=== PATIENT | female | born 1995 | race Caucasian/White ===

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

== ENCOUNTER 2017-05-04 14:59 | Emergency (ER) | payer MEDICAID ==
[~2017-05-04] VITALS: Ht 172.7 cm; Wt 113.9 kg
[~2017-05-04 14:59] MED LIST changes: +CLIN300C2 PO; +IBUP-1842 PO; -MOTRIN200 MG; +SACC250C4 PO; -VOLTAREN75 M1 PO
[2017-05-04 15:07] VITALS: BP 139/97
[2017-05-04 16:29] LABS: APPEARANCE,URINE CLEAR (CLEAR); BILIRUBIN,URINE NEGATIVE (NEGATIVE); COLOR,URINE YELLOW (YELLOW); LEUKOCYTE ESTERASE ,URINE NEGATIVE (NEGATIVE); NITRITE, URINE NEGATIVE (NEGATIVE); UGLUCOSE NEGATIVE (NEGATIVE)
[2017-05-04 16:30] LABS: BASOPHILS # (AUTO) 0.2 K/uL (0.00-0.22); HEMATOCRIT 40.6 % (36-48); HEMOGLOBIN 13.1 g/dL (12.0-16.0); LYMPHOCYTES # (AUTO) 1.7 K/uL (2.5-16.5); MEAN CORPUSCULAR HEMOGLOBIN 27 pg (27-31); MEAN CORPUSCULAR HGB CONC 32 g/dL (33-37); MEAN CORPUSCULAR VOLUME 82 fL (80-94); MONOCYTES # (AUTO) 0.5 K/uL (0.8-1.0); NEUTROPHILS # (AUTO) 6.4 K/uL (1.8-7.7); PLATELET COUNT (AUTO) 305 K/uL (140-450); RED BLOOD CELL COUNT(AUTO) 4.93 MIL/uL (4.20-5.40); RED CELL DISTRIBUTION WIDTH 13.3 % (11.6-13.7); WHITE BLOOD COUNT (AUTO) 8.8 K/uL (4.5-11.0)
[2017-05-04 16:36] LABS: ANION GAP 10.5 (8-16); CARBON DIOXIDE 28.5 mmol/L (21-32); CREATININE 0.8 mg/dL (0.6-1.3)
[2017-05-04 16:42] LABS: BILIRUBIN,DIRECT 0.2 mg/dL (0.0-0.3); TOTAL BILIRUBIN 0.8 mg/dL (0.0-1.0)
[2017-05-04 16:53] LABS: BLOOD, URINE NEGATIVE (NEGATIVE)
[2017-05-04] MEDS ORDERED: DICYCLOMINE HCL LIQUID 10 MG/5 ML UDC PO ONE (19:55)
[2017-05-04] MEDS ORDERED: ALUMINUM HYD/MAG/SIMETHICONE 30 ML UDC PO ONE (19:55)
[2017-05-04] MEDS ORDERED: LIDOCAINE VISCOUS 2% 20 ML UDC PO ONE (19:55)
[2017-05-04 20:40] VITALS: BP 133/89
== END 2017-05-04 20:40 | disposition home or self-care (01) ==
LOC: MED 14:59
DX: K29.70 Gastritis, unspecified, without bleeding (principal); E66.9 Obesity, unspecified; Z79.899 Other long term (current) drug therapy
CPT/HCPCS: 36415; 80053; 81003; 81025; 82248; 83690; 85025; 99284

== ENCOUNTER 2017-11-22 21:37 | Emergency (ER) | payer MEDICAID ==
[~2017-11-22] VITALS: Ht 170.2 cm; Wt 113.4 kg
[~2017-11-22 21:37] MED LIST changes: +FLOR250 PO; -SACC250C4 PO
[2017-11-22 21:43] VITALS: BP 147/91
--- NOTE | 2017-11-22 21:46 | NUR ---
PT. AMBULATED TO [facility]
--- NOTE | 2017-11-22 22:10 | NUR ---
Royce to chair Rios
[2017-11-22] MEDS ORDERED: KETOROLAC 30 MG/ML VIAL IM ONE (22:25)
[2017-11-22 23:20] VITALS: BP 132/88
--- NOTE | 2017-11-22 23:20 | NUR ---
Patient discharged with v/s stable. Written and verbal after care instructions given and explained. Patient alert, oriented and verbalized understanding of instructions. Ambulatory with steady gait. All questions addressed prior to discharge. ID band removed. Patient advised to follow up with PMD. Rx of IBU 400,ACETAMINOPHEN 500 given. Patient educated on indication of medication including possible reaction and side effects. Opportunity to ask questions provided and answered.
== END 2017-11-22 23:38 | disposition home or self-care (01) ==
LOC: MED 21:37
DX: S63.501A Unspecified sprain of right wrist, initial encounter (principal); E11.9 Type 2 diabetes mellitus without complications; Z79.899 Other long term (current) drug therapy; W21.00XA Struck by hit or thrown ball, unspecified type, initial encounter; Y93.89 Activity, other specified; Y92.89 Other specified places as the place of occurrence of the external cause; Y99.8 Other external cause status
CPT/HCPCS: 29125; 73110; 96372; 99284; J1885

== ENCOUNTER 2018-02-11 22:26 | Emergency (ER) | payer MEDICAID ==
[~2018-02-11] VITALS: Ht 170.2 cm; Wt 111.1 kg
[2018-02-11 22:35] VITALS: BP 156/97
--- NOTE | 2018-02-11 22:44 | NUR ---
PT AMBULATED TO ER BED 1, REPORT GIVEN TO THIAGO TAYLOR .
--- NOTE | 2018-02-11 22:45 | NUR ---
PT C/O SOB RANDOMLY THROUGHOUT THE DAY AND TINGLING IN LEGS X 1 WEEK, C/O TIGHTNESS IN NECK FROM STRESS X 1 WEEK. PT DENIES N/V/D; SKIN IS INTACT, PINK/WARM/DRY; AAOX4, PERRL, WITH EVEN AND STEADY GAIT; LUNGS CLEAR BL, BREATHING UNLABORED; HR EVEN AND REGULAR, BL PERIPHERAL PULSES PRESENT; BS ACTIVE X4, NO TENDERNESS TO PALPATION, NO HEPATOSPLENOMEGALLY PALPATED, RESONANT TO PERCUSSION; PT DENIES ANY FEVER, CP, OR COUGH AT THIS TIME ADMITS TO SOB INTERMITTENTLY; PT STATES 4/10 PAIN AT THIS TIME; VSS; PATIENT POSITIONED FOR COMFORT; HOB ELEVATED; BEDRAILS UP X2; BED DOWN.
--- NOTE | 2018-02-11 23:34 | NUR ---
REPORT GIVEN TO MARÍA DAS
[2018-02-11 23:44] LABS: BASOPHILS % (AUTO) 0.2 % (0.0-2.0); EOSINOPHILS # (AUTO) 0.1 K/uL (0-0.4); EOSINOPHILS % (AUTO) 0.9 % (0.0-4.0); HEMATOCRIT 37.1 % (36-48); LYMPHOCYTES # (AUTO) 2.5 K/uL (2.5-16.5); LYMPHOCYTES % (AUTO) 19.9 % (20.5-51.1); MEAN CORPUSCULAR HEMOGLOBIN 26 pg (27-31); MEAN CORPUSCULAR HGB CONC 32 g/dL (33-37); MEAN CORPUSCULAR VOLUME 81.4 fL (80-94); MONOCYTES # (AUTO) 0.7 K/uL (0.8-1.0); PLATELET COUNT (AUTO) 291 K/uL (140-450); RED BLOOD CELL COUNT(AUTO) 4.55 MIL/uL (4.20-5.40); RED CELL DISTRIBUTION WIDTH 14.7 % (11.6-13.7); WHITE BLOOD COUNT (AUTO) 12.4 K/uL (4.5-11.0)
[2018-02-11 23:53] LABS: ANION GAP 12.9 (8-16); CARBON DIOXIDE 26.7 mmol/L (21-32); CREATININE 0.7 mg/dL (0.6-1.3); POTASSIUM 3.6 mmol/L (3.5-5.1)
[2018-02-12 00:07] LABS: ALBUMIN 3.6 g/dL (3.4-5.0); THYROID STIMULATING HORMONE 1.9 uIU/mL (0.34-3.74); TOTAL BILIRUBIN 0.4 mg/dL (0.0-1.0)
--- NOTE | 2018-02-12 00:23 | NUR ---
Patient discharged with v/s stable. Written and verbal after care instructions given and explained. Patient verbalized understanding. Ambulatory with steady gait. All questions addressed prior to discharge. Advised to follow up with PMD.
[2018-02-12 00:24] VITALS: BP 117/58
== END 2018-02-12 00:23 | disposition home or self-care (01) ==
LOC: MED 22:26
DX: F41.9 Anxiety disorder, unspecified (principal); E11.9 Type 2 diabetes mellitus without complications
CPT/HCPCS: 36415; 80053; 81002; 81025; 84443; 85025; 99284

== ENCOUNTER 2019-01-09 22:26 | Emergency (ER) | payer MEDICAID ==
[~2019-01-09] VITALS: Ht 170.2 cm; Wt 113.4 kg
[2019-01-09 22:40] VITALS: BP 123/90
--- NOTE | 2019-01-09 22:42 | NUR ---
TO LOBBY AWAITING BED, VSS.
[2019-01-09 23:33] LABS: BASOPHILS % (AUTO) 0.1 % (0.0-2.0); EOSINOPHILS # (AUTO) 0.1 K/uL (0-0.4); HEMATOCRIT 39.3 % (36-48); HEMOGLOBIN 12.8 g/dL (12.0-16.0); LYMPHOCYTES # (AUTO) 1.7 K/uL (2.5-16.5); LYMPHOCYTES % (AUTO) 18.6 % (20.5-51.1); MEAN CORPUSCULAR HEMOGLOBIN 27 pg (27-31); MEAN CORPUSCULAR HGB CONC 33 g/dL (33-37); MEAN CORPUSCULAR VOLUME 83.2 fL (80-94); MONOCYTES # (AUTO) 0.5 K/uL (0.8-1.0); MONOCYTES % (AUTO) 5.9 % (1.7-9.3); NEUTROPHILS # (AUTO) 6.8 K/uL (1.8-7.7); NEUTROPHILS % (AUTO) 74.4 % (42.2-75.2); PLATELET COUNT (AUTO) 250 K/uL (140-450); RED BLOOD CELL COUNT(AUTO) 4.72 MIL/uL (4.20-5.40); RED CELL DISTRIBUTION WIDTH 13.8 % (11.6-13.7); WHITE BLOOD COUNT (AUTO) 9.1 K/uL (4.8-10.8)
[2019-01-09 23:44] LABS: ANION GAP 11.3 (8-16); CARBON DIOXIDE 26.5 mmol/L (21-32); CREATININE 0.9 mg/dL (0.6-1.3); POTASSIUM 3.8 mmol/L (3.5-5.1)
[2019-01-09 23:51] LABS: ALBUMIN 3.8 g/dL (3.4-5.0); TOTAL BILIRUBIN 0.6 mg/dL (0.0-1.0)
--- NOTE | 2019-01-10 00:52 | NUR ---
PT WAS RE-EVALUATED, VSS
--- NOTE | 2019-01-10 01:00 | NUR ---
PT BIB SELF C/O ABD PAIN X4 DAYS. PT STATES ABD PAIN STARTED ON SATURDAY, PAIN IS INTERMITTENT, 0/10 PAIN AT THIS TIME; UNKNOWN AGGRAVATING OR ALLVIATING FACTORS; PAIN MEDICINE AT HOME W/O RELIEF. DENIES N/V/D AT THIS TIME. PT ACTING APPROPRIATLY. ABD NON-TENDER AT THIS TIME. PMH: DENIES
--- NOTE | 2019-01-10 01:20 | NUR ---
US AT BEDSIDE.
--- NOTE | 2019-01-10 02:51 | NUR ---
DR. SOTO AT BEDSIDE FOR EVALUATION.
[2019-01-10] MEDS ORDERED: DICYCLOMINE HCL LIQUID 20 MG, ALUMINUM HYD/MAG/SIMETHICONE 30 ML, LIDOCAINE VISCOUS 2% ... PO ONE ×3 (02:55)
--- NOTE | 2019-01-10 03:32 | NUR ---
Patient discharged with v/s stable. Patient acting appropriatly, states she feels better after recieving medication and is ready to go home; states 0/10 pain at this time. Written and verbal after care instructions given and explained. Patient alert, oriented and verbalized understanding of instructions. Ambulatory with steady gait. All questions addressed prior to discharge. ID band removed. Patient advised to follow up with PMD. Rx of Motrin, and Prilosec given. Patient educated on indication of medication including possible reaction and side effects. Opportunity to ask questions provided and answered.
[2019-01-10 04:17] VITALS: BP 128/73
== END 2019-01-10 03:32 | disposition home or self-care (01) ==
LOC: MED 22:26
DX: R10.13 Epigastric pain (principal); Z90.49 Acquired absence of other specified parts of digestive tract; Z79.899 Other long term (current) drug therapy
CPT/HCPCS: 36415; 76705; 80053; 81002; 81025; 83690; 85025; 99284; Q0092

== ENCOUNTER 2019-06-15 21:39 | Emergency (ER) | payer MEDICAID ==
[~2019-06-15] VITALS: Ht 170.2 cm; Wt 117.9 kg
[2019-06-15 21:50] VITALS: BP 144/76
--- NOTE | 2019-06-15 21:55 | NUR ---
23 YO F BIB MOM PRESENTS TO ED WITH DEEP ABSCESS NOTED ABOVE COCCYX WITH PURULENT, SANGUINEOUS DISCHARGE X 1 DAY. PT C/O 7/10 SHARP PAIN. DENIES FEVER, CHILLS, NVD. -- PT CALM, COOPERATIVE. ANSWERS QUESTTIONS WITHOUT DIFFICULTY. -- SKIN PINK, WARM, DRY. BREATHING EVEN UNLABORED. PMH-- DENIES RX-- SELF MEDICATED WITH AUGMENTIN X 1 TAB
--- NOTE | 2019-06-15 21:57 | NUR ---
Pt ambulated to bed 3.
[2019-06-15] MEDS ORDERED: ceFAZolin 1,000 MG VIAL IM ONE (22:10)
[2019-06-15] MEDS ORDERED: WATER STERILE 10 ML MC ONE (22:30)
--- NOTE | 2019-06-15 22:35 | NUR ---
DURING RECONSITITUTION OF ANCEF MEDICATION WITH 2.5 ML STERILE WATER, ONE VIAL APPEARED CLEAR, LIGHT YELLOW AND THE OTHER APPEARED CLOUDY WHITE WITH SOLID WHITE PRECIPITATE. VERIFIED WITH [facility] THAT MEDICATION SHOULD APPEAR CLEAR WITH LIGHT YELLOW TINGE. VIAL X 2 RECONSTITUED WITH CLOUDY WHITE PRECIPITATE; MEDICATION DISPOSED. 4 VIALS ANCEF 1 GRAM TAKEN FROM [facility]; 2 WASTED.
[2019-06-15 22:50] VITALS: BP 144/76
--- NOTE | 2019-06-15 22:55 | NUR ---
Patient discharged with v/s stable. Written and verbal after care instructions given and explained. Patient alert, oriented and verbalized understanding of instructions. Ambulatory with steady gait. All questions addressed prior to discharge. ID band removed. Patient advised to follow up with PMD. Rx of Keflex and Naprosyn given. Patient educated on indication of medication including possible reaction and side effects. Opportunity to ask questions provided and answered. Pt discharged by Dr. Carranza.
== END 2019-06-15 22:55 | disposition home or self-care (01) ==
LOC: MED 21:39
DX: L02.31 Cutaneous abscess of buttock (principal); Z79.899 Other long term (current) drug therapy
CPT/HCPCS: 96372; 99283; J0690

== ENCOUNTER 2019-07-28 21:18 | Emergency (ER) | payer MEDICAID ==
[~2019-07-28] VITALS: Ht 170.2 cm; Wt 117.9 kg
[2019-07-28 21:20] VITALS: BP 141/85
--- NOTE | 2019-07-28 21:22 | NUR ---
TO LOBBY A/W BED AMBULATORY
--- NOTE | 2019-07-28 21:46 | NUR ---
PT AMBULATED TO BED 07
--- NOTE | 2019-07-28 21:47 | NUR ---
23 Y/O FEMALE PRESENTS TO ED, C/O RIGHT GROIN PAIN RADIATES TO RIGHT UPPER LEG. PT STATES PAIN IS 7/10 WHEN MOVING OBJECTS AT WORK; 2/10 WITHOUT MOVEMENT. PT DENIES ANY TINGLING SENSATION ON EXTREMITIES. PT ABLE TO AMBULATE WITH SLOW STEADY GAIT. TOOK MOTRIN PRIOR TO ARRIVAL TO ED WITH SOME RELIEF. PT AT STABLE CONDITION. DENIES N/V/D. ERMD AWARE. WILL CONTINUE TO MONITOR.
[2019-07-28 22:10] VITALS: BP 141/85
--- NOTE | 2019-07-28 22:10 | NUR ---
PT DISCHARGED WITH PAPERWORK. RX MOTRIN. EDUCATED PT REGARDING MEDICATIONS AND S/E. EDUCATED PT REGARDING D/C DIAGNOSIS AND INSTRUCTIONS. PT VERBALIZED UNDERSTANDING OF TEACHING. TOLD PT TO FOLLOW UP WITH PCP AND WHEN TO RETURN TO ED. PT AT STABLE CONDITION. ABLE TO AMBULATE WITH SLOW STEADY GAIT. ALL QUESTIONS ANSWERED.
== END 2019-07-28 22:10 | disposition home or self-care (01) ==
LOC: MED 21:18
DX: S39.011A Strain of muscle, fascia and tendon of abdomen, initial encounter (principal); S76.911A Strain of unspecified muscles, fascia and tendons at thigh level, right thigh, initial encounter; Z79.899 Other long term (current) drug therapy; X58.XXXA Exposure to other specified factors, initial encounter; Y93.89 Activity, other specified; Y92.89 Other specified places as the place of occurrence of the external cause; Y99.8 Other external cause status
CPT/HCPCS: 81002; 81025; 99283

== ENCOUNTER 2019-08-31 13:30 | Emergency (ER) | payer MEDICAID ==
[~2019-08-31] VITALS: Ht 170.2 cm; Wt 120.3 kg
[2019-08-31 15:01] VITALS: BP 132/79
--- NOTE | 2019-08-31 15:15 | NUR ---
BIB MOTHER C/O MID CHEST RADIATING TO RT FLANK S/P FELL ON A GRASS WHILE PLAYING SOCCER. DENIES OTHER INJURY, ALOC OR NV
[2019-08-31 15:58] VITALS: BP 132/79
--- NOTE | 2019-08-31 15:58 | NUR ---
Patient discharged with v/s stable. Written and verbal after care instructions given and explained. Patient verbalized understanding. Ambulatory with by parent. All questions addressed prior to discharge. Advised to follow up with PMD.
== END 2019-08-31 15:58 | disposition home or self-care (01) ==
LOC: MED 13:30
DX: S20.211A Contusion of right front wall of thorax, initial encounter (principal); L72.8 Other follicular cysts of the skin and subcutaneous tissue; E11.9 Type 2 diabetes mellitus without complications; Z79.899 Other long term (current) drug therapy; W18.30XA Fall on same level, unspecified, initial encounter; Y93.89 Activity, other specified; Y92.89 Other specified places as the place of occurrence of the external cause; Y99.8 Other external cause status
CPT/HCPCS: 71046; 93005; 99283

== ENCOUNTER 2019-09-26 10:35 | Emergency (ER) | payer MEDICAID ==
[~2019-09-26] VITALS: Ht 170.2 cm; Wt 117.9 kg
[2019-09-26 10:59] VITALS: BP 140/83
--- NOTE | 2019-09-26 11:03 | NUR ---
PATIENT WHEELCHAIR ASSISTED TO BED 3
--- NOTE | 2019-09-26 11:14 | NUR ---
24YO F C/O L ANKLE PAIN AND SWELLING X 30MINS. PT WAS PLAYING SOCCER WHEN SHE TWISTED HER L ANKLE. PAIN 9/10, THROBBING. ICE APPLIED ON SITE. CR <3SECS. DENIES NUMBNESS AND TINGLING SENSATION. VSS. PATIENT ON WHEELCHAIR. ER MD MADE AWARE OF PT STATUS. NKA DENIES [facility] MEDS: MOTRIN
[2019-09-26] MEDS ORDERED: KETOROLAC 60 MG/2 ML VIAL IM ONE (12:20)
[2019-09-26 12:38] VITALS: BP 140/83
--- NOTE | 2019-09-26 12:38 | NUR ---
Patient discharged with v/s stable. Written and verbal after care instructions given and explained. Patient alert, oriented and verbalized understanding of instructions. Ambulatory with crutches. All questions addressed prior to discharge. ID band removed. Patient advised to follow up with PMD. Rx of MOTRIN given. Patient educated on indication of medication including possible reaction and side effects. Opportunity to ask questions provided and answered.
== END 2019-09-26 12:38 | disposition home or self-care (01) ==
LOC: MED 10:35
DX: S93.402A Sprain of unspecified ligament of left ankle, initial encounter (principal); E11.9 Type 2 diabetes mellitus without complications; Z79.899 Other long term (current) drug therapy; W19.XXXA Unspecified fall, initial encounter; Y93.66 Activity, soccer; Y92.89 Other specified places as the place of occurrence of the external cause; Y99.8 Other external cause status
CPT/HCPCS: 73610; 96372; 99283; J1885

== ENCOUNTER 2019-12-04 08:41 | Emergency (ER) | payer MEDICAID ==
[~2019-12-04] VITALS: Ht 170.2 cm; Wt 119.3 kg
[2019-12-04 08:43] VITALS: BP 120/73
--- NOTE | 2019-12-04 08:53 | NUR ---
24 Y/O FEMALE C/O SUDDEN ONSET ABD PAIN THAT WOKE PT FROM HER SLEEP. DENIES N/V/D. HAS TENDERNESS TO EPIGASTRIC REGION. ABD SOFT AND ROUND. LAST BM WAS LAST NIGHT AND NORMAL. 9/10 SHARP INTERMITTENT PAIN. RR EVEN AND UNLABORED, HOB ELEVATED. VSS MEDHX: DENIES ALLERGIES: NKA
--- NOTE | 2019-12-04 08:54 | NUR ---
DR GARCIA AT BEDSIDE EXAMINING PT
[2019-12-04] MEDS ORDERED: DICYCLOMINE HCL LIQUID 10 MG/5 ML UDC PO ONE (08:55)
[2019-12-04] MEDS ORDERED: ALUMINUM HYD/MAG/SIMETHICONE 30 ML UDC PO ONE (08:55)
[2019-12-04] MEDS ORDERED: LIDOCAINE VISCOUS 2% 20 ML UDC PO ONE (08:55)
--- NOTE | 2019-12-04 09:36 | NUR ---
STATES DECREASE IN EPIGASTRIC PAIN, 5/10 AT THIS TIME
--- NOTE | 2019-12-04 09:38 | NUR ---
DR GARCIA RE-EVALUATING PT
[2019-12-04 10:11] VITALS: BP 120/73
--- NOTE | 2019-12-04 10:11 | NUR ---
Patient discharged with v/s stable. Written and verbal after care instructions given and explained. Patient alert, oriented and verbalized understanding of instructions. Ambulatory with steady gait. All questions addressed prior to discharge. ID band removed. Patient advised to follow up with PMD. Rx of Prilosec, Tramadol, and Maalox Suspension given. Patient educated on indication of medication including possible reaction and side effects. Opportunity to ask questions provided and answered.
== END 2019-12-04 10:11 | disposition home or self-care (01) ==
LOC: MED 08:41
DX: K29.70 Gastritis, unspecified, without bleeding (principal); E11.9 Type 2 diabetes mellitus without complications; Z79.899 Other long term (current) drug therapy
CPT/HCPCS: 81002; 81025; 99284

== ENCOUNTER 2020-02-24 04:25 | Emergency (ER) | payer MEDICAID ==
[~2020-02-24] VITALS: Ht 170.2 cm; Wt 117.9 kg
--- NOTE | 2020-02-24 04:25 | NUR ---
PT PLACED IN TENT TO A/W MEDICAL EVALUTION.
[2020-02-24 04:27] VITALS: BP 127/77
--- NOTE | 2020-02-24 04:34 | NUR ---
PT MOVED TO ER BED 4
--- NOTE | 2020-02-24 04:38 | NUR ---
Dr. Quintero examining patient.
--- NOTE | 2020-02-24 04:43 | NUR ---
24 Y/O FEMALE PRESENTS TO ER WITH C/O DRY, NON PRODUCTIVE COUGH X 1 WEEK. 4/10 MIDSTERNAL CHEST PAIN FROM COUGHING. BILATERAL LOBES CTA, SOME SOB WITH DEEP BREATHING. R/R EQUAL, AND UNLABORED. VSS. DENIES SMOKING, NAUSEA, VOMITING, DIARRHEA, AFEBRILE. DENIES BEING AROUND ANYONE SICK OR KNOW CONFIRMED COVID POSITIVE PATIENTS. SIDE RAIL X1, BED IN LOW POSITION, WILL CONTINUE TO MONITOR. PMH: ANXIETY NKDA
--- NOTE | 2020-02-24 04:53 | NUR ---
XRAY AT BEDSIDE
--- NOTE | 2020-02-24 05:10 | NUR ---
Patient discharged with v/s stable. Written and verbal after care instructions given and explained. Patient alert, oriented and verbalized understanding of instructions. Ambulatory with steady gait. All questions addressed prior to discharge. ID band removed. Patient advised to follow up with PMD. Rx of MEDROL DOSEPAK; VENTOLIN HFA given. Patient educated on indication of medication including possible reaction and side effects. Opportunity to ask questions provided and answered.
[2020-02-24 05:16] VITALS: BP 127/77
== END 2020-02-24 05:10 | disposition home or self-care (01) ==
LOC: MED 04:25
DX: J20.9 Acute bronchitis, unspecified (principal); F12.90 Cannabis use, unspecified, uncomplicated; E11.9 Type 2 diabetes mellitus without complications; Z79.899 Other long term (current) drug therapy
CPT/HCPCS: 71045; 99283; Q0092

== ENCOUNTER 2020-03-12 16:39 | Emergency (ER) | payer MEDICAID ==
[~2020-03-12] VITALS: Ht 170.2 cm; Wt 115.7 kg
[2020-03-12 16:46] VITALS: BP 124/73
--- NOTE | 2020-03-12 17:06 | NUR ---
Female Fly Tier (MYSELF) accompanied NICKY ZEE FOR PT EXAM
--- NOTE | 2020-03-12 17:17 | NUR ---
PT SEEN AND D/C BY NICKY ZEE. NO NURSING CARE PROVIDED.
--- NOTE | 2020-03-12 17:17 | NUR ---
Patient discharged with v/s stable. Written and verbal after care instructions given and explained. Patient alert, oriented and verbalized understanding of instructions. Ambulatory with steady gait. All questions addressed prior to discharge. ID band removed. Patient advised to follow up with PMD. Rx of DOXYCYCLINE AND IBUPROFEN given. Patient educated on indication of medication including possible reaction and side effects. Opportunity to ask questions provided and answered.
[2020-03-12 17:19] VITALS: BP 124/73
== END 2020-03-12 17:17 | disposition home or self-care (01) ==
LOC: MED 16:39
DX: L02.412 Cutaneous abscess of left axilla (principal); E11.9 Type 2 diabetes mellitus without complications; Z90.09 Acquired absence of other part of head and neck; Z79.899 Other long term (current) drug therapy
CPT/HCPCS: 99283

== ENCOUNTER 2020-03-27 12:52 | Emergency (ER) | payer MEDICAID ==
[~2020-03-27] VITALS: Ht 170.2 cm; Wt 117.9 kg
[2020-03-27 13:09] VITALS: BP 151/77
--- NOTE | 2020-03-27 13:25 | NUR ---
24 y/o female from home c/o lump and pain to lt armpit. Pt states she was seen at [facility] 2 wks ago when it was first noticed and prescribed Doxycycline. Finished prescription with no relief. States 8/10 aching pain, worse when pressure is applied to area. Skin warm, dry, intact. X1 side rail raised, bed locked and in low position. VSS medhx: denies
--- NOTE | 2020-03-27 13:47 | NUR ---
Lidocaine placed at bedside for use by Dr Quintero.
[2020-03-27] MEDS: LIDOCAINE/EPI 1% 1:100000 20 ML VIAL INJ STA (13:50)
[2020-03-27 15:11] VITALS: BP 133/75
== END 2020-03-27 15:11 | disposition home or self-care (01) ==
LOC: MED 12:52
DX: L72.3 Sebaceous cyst (principal); E11.9 Type 2 diabetes mellitus without complications; Z79.890 Hormone replacement therapy; Z79.899 Other long term (current) drug therapy
CPT/HCPCS: 99284; J2001

== ENCOUNTER 2020-04-12 22:50 | Emergency (ER) | payer MEDICAID ==
[~2020-04-12] VITALS: Ht 170.2 cm; Wt 117.5 kg
[2020-04-12 23:28] VITALS: BP 125/72
--- NOTE | 2020-04-13 | NUR ---
24 YO F BIB SELF FOR C/C OF 8/10 LEFT ARMPIT PAIN X3 WEEKS. PT HAS A SMALL NODULE UNDER ARM, FELT ON PALPATION. [facility]AS[facility] AND RECIEVED ABX THAT SHE COMPLETED. PT HAS ALSO BEEN SEEN BY PRIMARY CARE DOCTOR AND HAS A FOLLOW UP ULTRASOUND SCHEDULED IN THE NEAR FUTURE. PT DENIES TAKING ANY OTC PAIN MEDS FOR PAIN. BED LOCKED AND IN LOWEST POSITION. NKA NO MED HX NO RX
[2020-04-13] MEDS ORDERED: IBUPROFEN 800 MG TAB PO ONE (00:05)
[2020-04-13 00:20] VITALS: BP 125/72
== END 2020-04-13 00:15 | disposition home or self-care (01) ==
LOC: MED 22:50
DX: N63.32 Unspecified lump in axillary tail of the left breast (principal); E11.9 Type 2 diabetes mellitus without complications; Z79.899 Other long term (current) drug therapy
CPT/HCPCS: 99282; 99283

== ENCOUNTER 2020-04-27 00:47 | Emergency (ER) | payer MEDICAID ==
[~2020-04-27] VITALS: Ht 170.2 cm; Wt 117.9 kg
[2020-04-27 00:53] VITALS: BP 127/85
--- NOTE | 2020-04-27 00:55 | NUR ---
PT AMBULATED TO BED 11
--- NOTE | 2020-04-27 01:00 | NUR ---
24 YO FEMALE CO ABSCESS UNDER HER LEFT ARM. PT WAS SEEN HERE IN ER PREVIOUSLY. ABSCESS BROKE OPEN TODAY AND WAS BLEEDING. NO PMH, NO RX
--- NOTE | 2020-04-27 01:12 | NUR ---
ERMD AT BEDSIDE EVALUTING PT
[2020-04-27 01:49] VITALS: BP 127/85
--- NOTE | 2020-04-27 01:49 | NUR ---
Patient discharged with v/s stable. Written and verbal after care instructions given and explained. Patient verbalized understanding. Ambulatory with steady gait. ID Band Removed. All questions addressed prior to discharge. Advised to follow up with PMD.
== END 2020-04-27 01:49 | disposition home or self-care (01) ==
LOC: MED 00:47
DX: L73.2 Hidradenitis suppurativa (principal); L02.414 Cutaneous abscess of left upper limb; E11.9 Type 2 diabetes mellitus without complications; Z79.899 Other long term (current) drug therapy
CPT/HCPCS: 99283

== ENCOUNTER 2021-03-05 03:41 | Emergency (ER) | payer MEDICAID ==
[~2021-03-05] VITALS: Ht 170.2 cm; Wt 120.2 kg
[2021-03-05 03:52] VITALS: BP 138/89
--- NOTE | 2021-03-05 03:52 | NUR ---
TO BED AMBULATORY
[2021-03-05] MEDS ORDERED: ACETAMINOPHEN EXTRA STRENGTH 500 MG TAB PO ONE (04:05)
[2021-03-05] MEDS ORDERED: ONDANSETRON 4 MG ODT PO ONE (04:05)
--- NOTE | 2021-03-05 04:06 | NUR ---
25/F c/o headache and nausea. Pt drank a lot of tequila in a republic[employer]. Pt oriented and able to answer questions. denies PMH NKDA
--- NOTE | 2021-03-05 04:09 | NUR ---
Dr. Moreira at bedside examining patient
--- NOTE | 2021-03-05 05:10 | NUR ---
Patient discharged with v/s stable. Written and verbal after care instructions given and explained. Patient verbalized understanding. Ambulatory with by brother. All questions addressed prior to discharge. Advised to follow up with PMD.
[2021-03-05 05:11] VITALS: BP 138/89
== END 2021-03-05 05:10 | disposition home or self-care (01) ==
LOC: MED 03:41
DX: F10.19 Alcohol abuse with unspecified alcohol-induced disorder (principal); Y90.9 Presence of alcohol in blood, level not specified
CPT/HCPCS: 99283; Q0162

== ENCOUNTER 2021-03-12 02:50 | Emergency (ER) | payer MEDICAID ==
[~2021-03-12] VITALS: Ht 170.2 cm; Wt 122.5 kg
[2021-03-12 02:58] VITALS: BP 134/69
[2021-03-12] MEDS ORDERED: KETOROLAC 30 MG/ML VIAL IM ONE (03:10)
[2021-03-12] MEDS ORDERED: PROCHLORPERAZINE 10 MG/2 ML VIAL IM ONE (03:10)
[2021-03-12] MEDS ORDERED: diphenhydrAMINE 50 MG/ML VIAL IM ONE (03:10)
[2021-03-12 05:20] VITALS: BP 134/69
== END 2021-03-12 05:20 | disposition home or self-care (01) ==
LOC: MED 02:50
DX: G43.909 Migraine, unspecified, not intractable, without status migrainosus (principal); E11.9 Type 2 diabetes mellitus without complications; Z79.899 Other long term (current) drug therapy
CPT/HCPCS: 70450; 81025; 96372; 99284; J0780; J1200; J1885

== ENCOUNTER 2021-05-01 14:10 | Emergency (ER) | payer MEDICAID ==
[~2021-05-01] VITALS: Ht 170.2 cm; Wt 122.5 kg
[2021-05-01 14:39] VITALS: BP 148/85
--- NOTE | 2021-05-01 14:44 | NUR ---
PT SENT TO LOBBY
[2021-05-01] MEDS ORDERED: NAPR-1704 PO (15:30)
[2021-05-01 15:50] VITALS: BP 126/72
--- NOTE | 2021-05-01 15:51 | NUR ---
PT TREATED IN THE LOBBY. NO NURSING INTERVENTIONS NEEDED
== END 2021-05-01 15:51 | disposition home or self-care (01) ==
LOC: MED 14:10
DX: S30.0XXA Contusion of lower back and pelvis, initial encounter (principal); R03.0 Elevated blood-pressure reading, without diagnosis of hypertension; E11.9 Type 2 diabetes mellitus without complications; Z79.899 Other long term (current) drug therapy; W22.8XXA Striking against or struck by other objects, initial encounter; Y93.89 Activity, other specified; Y92.89 Other specified places as the place of occurrence of the external cause; Y99.8 Other external cause status
CPT/HCPCS: 99282

== ENCOUNTER 2021-05-05 19:33 | Emergency (ER) | payer MEDICAID ==
[~2021-05-05] VITALS: Ht 170.2 cm; Wt 124.7 kg
[~2021-05-05 19:33] MED LIST changes: +NAPR-1704 PO
[2021-05-05 20:15] VITALS: BP 150/83
--- NOTE | 2021-05-05 20:18 | NUR ---
TO LOBBY A/W BED AMBULATORY
[2021-05-05] MEDS ORDERED: LIDO1ADH54 TP (23:47)
[2021-05-06 00:12] VITALS: BP 142/79
== END 2021-05-06 00:12 | disposition home or self-care (01) ==
LOC: MED 19:33
DX: S30.0XXA Contusion of lower back and pelvis, initial encounter (principal); Z79.899 Other long term (current) drug therapy; W22.8XXA Striking against or struck by other objects, initial encounter; Y93.89 Activity, other specified; Y92.89 Other specified places as the place of occurrence of the external cause; Y99.8 Other external cause status
CPT/HCPCS: 99281

== ENCOUNTER 2022-01-04 21:57 | Emergency (ER) | payer MEDICAID ==
[~2022-01-04] VITALS: Ht 170.2 cm; Wt 131.5 kg
[~2022-01-04 21:57] MED LIST changes: +LIDO1ADH54 TP
[2022-01-04 22:14] VITALS: BP 134/68
--- NOTE | 2022-01-04 23:11 | NUR ---
PT TAKEN TO ER BED 6
--- NOTE | 2022-01-04 23:21 | NUR ---
Dr. Mariano examming patient.
[2022-01-04] MEDS ORDERED: KETOROLAC 60 MG/2 ML VIAL IM ONE (23:25)
[2022-01-04] MEDS ORDERED: IBUP-2213 PO (23:33)
[2022-01-04 23:41] VITALS: BP 127/68
== END 2022-01-04 23:41 | disposition home or self-care (01) ==
LOC: MED 21:57
DX: S63.610A Unspecified sprain of right index finger, initial encounter (principal); Z79.899 Other long term (current) drug therapy; Z98.890 Other specified postprocedural states; Z79.1 Long term (current) use of non-steroidal anti-inflammatories (NSAID); W18.39XA Other fall on same level, initial encounter; Y92.89 Other specified places as the place of occurrence of the external cause; Y93.89 Activity, other specified; Y99.8 Other external cause status
CPT/HCPCS: 73140; 96372; 99283; J1885

== ENCOUNTER 2022-04-18 15:33 | Emergency (ER) | payer MEDICAID ==
[~2022-04-18] VITALS: Ht 170.2 cm; Wt 97.5 kg
[~2022-04-18 15:33] MED LIST changes: +IBUP-2213 PO
[2022-04-18 15:45] VITALS: BP 113/74
--- NOTE | 2022-04-18 15:50 | NUR ---
PT AMB TO BED 3.
--- NOTE | 2022-04-18 16:01 | NUR ---
C/O ABSCESS AT TAILBONE X 3 DAYS. CAUSES PAIN WHEN LAYING AND SITTING. PT STATES MOTHER SQUEEZED IT AND PUS AND BLOOD CAME OUT, NO CURRENT DRAINAGE. PMH: PILONIDAL CYST, DM
[2022-04-18] MEDS ORDERED: SULF-59 PO (16:49)
[2022-04-18] MEDS ORDERED: IBUP-2213 PO (16:49)
--- NOTE | 2022-04-18 17:04 | NUR ---
Patient discharged with v/s stable. Written and verbal after care instructions given and explained. Patient alert, oriented and verbalized understanding of instructions. Ambulatory with steady gait. All questions addressed prior to discharge. ID band removed. Patient advised to follow up with PMD. Rx of IBUPROFEN & BACTRIM given. Patient educated on indication of medication including possible reaction and side effects. Opportunity to ask questions provided and answered.
== END 2022-04-18 17:04 | disposition home or self-care (01) ==
LOC: MED 15:33
DX: L05.91 Pilonidal cyst without abscess (principal); E11.9 Type 2 diabetes mellitus without complications; Z79.4 Long term (current) use of insulin; Z79.899 Other long term (current) drug therapy
CPT/HCPCS: 99284

== ENCOUNTER 2022-11-08 03:50 | Emergency (ER) | payer MEDICAID ==
[~2022-11-08] VITALS: Ht 170.2 cm; Wt 105.7 kg
[~2022-11-08 03:50] MED LIST changes: +SULF-59 PO
[2022-11-08 04:01] VITALS: BP 131/74
--- NOTE | 2022-11-08 04:05 | NUR ---
PT TAKEN TO BED 6
--- NOTE | 2022-11-08 04:07 | NUR ---
Dr. Puri examining patient.
[2022-11-08] MEDS ORDERED: DICYCLOMINE HCL LIQUID 20 MG, ALUMINUM HYD/MAG/SIMETHICONE 30 ML, LIDOCAINE VISCOUS 2% ... PO ONE ×3 (04:10)
[2022-11-08] MEDS ORDERED: KETOROLAC 15 MG/ML VIAL IM ONE (04:10)
[2022-11-08] MEDS ORDERED: PANTOPRAZOLE 40 MG INJ VIAL IVP ONE (04:15)
[2022-11-08] MEDS ORDERED: SUCRALFATE 1 GM TAB PO SCH (04:15)
[2022-11-08] MEDS ORDERED: NACL 0.9% 1,000 ML IV ONE (04:15)
--- NOTE | 2022-11-08 04:16 | NUR ---
X-Ray at bedside.
--- NOTE | 2022-11-08 04:23 | NUR ---
Ultrasound at bedside.
[2022-11-08 04:34] LABS: BASOPHILS % (AUTO) 0.6 % (0.0-2.0); EOSINOPHILS # (AUTO) 0.1 K/uL (0-0.4); HEMATOCRIT 38.9 % (36-48); HEMOGLOBIN 12.5 g/dL (12.0-16.0); LYMPHOCYTES # (AUTO) 1.9 K/uL (2.5-16.5); LYMPHOCYTES % (AUTO) 24.1 % (20.5-51.1); MEAN CORPUSCULAR HEMOGLOBIN 27 pg (27-31); MEAN CORPUSCULAR HGB CONC 32 g/dL (33-37); MEAN CORPUSCULAR VOLUME 84.7 fL (80-94); MONOCYTES # (AUTO) 0.5 K/uL (0.8-1.0); MONOCYTES % (AUTO) 6.7 % (1.7-9.3); NEUTROPHILS # (AUTO) 5.4 K/uL (1.8-7.7); NEUTROPHILS % (AUTO) 67.6 % (42.2-75.2); PLATELET COUNT (AUTO) 240 K/uL (140-450); RED BLOOD CELL COUNT(AUTO) 4.59 MIL/uL (4.20-5.40); RED CELL DISTRIBUTION WIDTH 13.9 % (11.6-13.7); WHITE BLOOD COUNT (AUTO) 7.9 K/uL (4.8-10.8)
[2022-11-08] MEDS ORDERED: DICYCLOMINE HCL LIQUID 10 MG/5 ML UDC ONE (04:43)
[2022-11-08] MEDS ORDERED: ALUMINUM HYD/MAG/SIMETHICONE 30 ML UDC ONE ×2 (04:43→04:46)
[2022-11-08 05:00] LABS: ALBUMIN 3.4 g/dL (3.4-5.0); ANION GAP 12.1 (8-16); CARBON DIOXIDE 26.8 mmol/L (21-32); CREATININE 0.6 mg/dL (0.6-1.3); POTASSIUM 3.9 mmol/L (3.5-5.1); TOTAL BILIRUBIN 0.5 mg/dL (0.0-1.0)
[2022-11-08] MEDS ORDERED: ONDANSETRON 4 MG/2 ML VIAL IVP ONE (05:40)
[2022-11-08] MEDS ORDERED: MORPHINE SULFATE 4 MG/ML SYR IVP ONE (05:40)
[2022-11-08] MEDS ORDERED: OMEP40EC23 PO (05:41)
[2022-11-08] MEDS ORDERED: SUCR1TAB35 PO (05:41)
[2022-11-08] MEDS ORDERED: ACET-10509 PO (05:41)
[2022-11-08 06:21] VITALS: BP 131/74
--- NOTE | 2022-11-08 06:21 | NUR ---
Patient discharged with v/s stable. Written and verbal after care instructions given and explained. Patient alert, oriented and verbalized understanding of instructions. Ambulatory with steady gait. All questions addressed prior to discharge. ID band removed. Patient advised to follow up with PMD. Rx of acetaminophen, omeprazole, and sucralfate given. Patient educated on indication of medication including possible reaction and side effects. Opportunity to ask questions provided and answered.
[2022-11-09] MEDS ORDERED: SUCR1TAB6 PO (06:19)
[2022-11-09] MEDS ORDERED: FAMO-90 PO (06:19)
[2022-11-09] MEDS ORDERED: ONDA-188 PO (06:19)
[2022-11-09] MEDS ORDERED: SIME125T38 PO (06:19)
[2022-11-09] MEDS ORDERED: ACET-9527 PO (06:19)
== END 2022-11-08 06:21 | disposition home or self-care (01) ==
LOC: MED 03:50
DX: K29.70 Gastritis, unspecified, without bleeding (principal); E11.9 Type 2 diabetes mellitus without complications; Z79.899 Other long term (current) drug therapy; Z79.1 Long term (current) use of non-steroidal anti-inflammatories (NSAID); Z79.2 Long term (current) use of antibiotics
CPT/HCPCS: 36415; 71045; 76705; 80053; 83690; 85025; 96361; 96374; 96375; 99285; C9113; J2270; J2405; Q0092; J7030

== ENCOUNTER 2022-11-09 02:09 | Emergency (ER) | payer MEDICAID ==
[~2022-11-09] VITALS: Ht 167.6 cm; Wt 104.3 kg
[~2022-11-09 02:09] MED LIST changes: +ACET-10509 PO; +OMEP40EC23 PO; +SUCR1TAB35 PO
[2022-11-09 02:17] VITALS: BP 126/85
--- NOTE | 2022-11-09 02:22 | NUR ---
TO LOBBY FOLLOWING TRIAGE AFTER OBTAINING UA
[2022-11-09 02:53] LABS: BASOPHILS % (AUTO) 0.3 % (0.0-2.0); EOSINOPHILS # (AUTO) 0.1 K/uL (0-0.4); EOSINOPHILS % (AUTO) 1.2 % (0.0-4.0); HEMATOCRIT 41.8 % (36-48); HEMOGLOBIN 13.6 g/dL (12.0-16.0); LYMPHOCYTES # (AUTO) 1.7 K/uL (2.5-16.5); LYMPHOCYTES % (AUTO) 18.1 % (20.5-51.1); MEAN CORPUSCULAR HEMOGLOBIN 28 pg (27-31); MEAN CORPUSCULAR HGB CONC 33 g/dL (33-37); MEAN CORPUSCULAR VOLUME 84.7 fL (80-94); MONOCYTES # (AUTO) 0.7 K/uL (0.8-1.0); MONOCYTES % (AUTO) 7.9 % (1.7-9.3); NEUTROPHILS # (AUTO) 6.8 K/uL (1.8-7.7); NEUTROPHILS % (AUTO) 72.5 % (42.2-75.2); PLATELET COUNT (AUTO) 264 K/uL (140-450); RED BLOOD CELL COUNT(AUTO) 4.93 MIL/uL (4.20-5.40); RED CELL DISTRIBUTION WIDTH 14.2 % (11.6-13.7); WHITE BLOOD COUNT (AUTO) 9.3 K/uL (4.8-10.8)
[2022-11-09] MEDS ORDERED: HYDROcodone/APAP 5/325 MG 1 TAB TAB PO ONE (03:05)
[2022-11-09 03:18] LABS: ALBUMIN 3.8 g/dL (3.4-5.0); ANION GAP 13.4 (8-16); CARBON DIOXIDE 27.5 mmol/L (21-32); CREATININE 0.7 mg/dL (0.6-1.3); POTASSIUM 3.9 mmol/L (3.5-5.1); TOTAL BILIRUBIN 0.4 mg/dL (0.0-1.0)
--- NOTE | 2022-11-09 04:07 | NUR ---
Patient return back from CT scan.
[2022-11-09 04:42] LABS: APPEARANCE,URINE CLEAR (CLEAR); BILIRUBIN,URINE NEGATIVE (NEGATIVE); BLOOD, URINE NEGATIVE (NEGATIVE); COLOR,URINE YELLOW (YELLOW); LEUKOCYTE ESTERASE ,URINE NEGATIVE (NEGATIVE); NITRITE, URINE NEGATIVE (NEGATIVE); PH,URINE 7.5 (5.0-9.0); UGLUCOSE NEGATIVE (NEGATIVE)
[2022-11-09] MEDS ORDERED: FAMO-90 PO (06:19)
[2022-11-09] MEDS ORDERED: SUCR1TAB6 PO (06:19)
[2022-11-09] MEDS ORDERED: ACET-9527 PO (06:19)
[2022-11-09] MEDS ORDERED: ONDA-188 PO (06:19)
[2022-11-09] MEDS ORDERED: SIME125T38 PO (06:19)
[2022-11-09 06:30] VITALS: BP 126/85
--- NOTE | 2022-11-09 06:30 | NUR ---
Patient discharged with v/s stable. Written and verbal after care instructions given and explained. Patient alert, oriented and verbalized understanding of instructions. Ambulatory with steady gait. All questions addressed prior to discharge. ID band removed. Patient advised to follow up with PMD. Rx of HYDROCODONE, PEPCID, ZOFRAN, MYLANTA given. Patient educated on indication of medication including possible reaction and side effects. Opportunity to ask questions provided and answered.
== END 2022-11-09 06:30 | disposition home or self-care (01) ==
LOC: MED 02:09
DX: K29.70 Gastritis, unspecified, without bleeding (principal); E11.9 Type 2 diabetes mellitus without complications; Z79.4 Long term (current) use of insulin; Z79.899 Other long term (current) drug therapy
CPT/HCPCS: 36415; 80053; 81003; 81025; 83690; 85025; 99284

== ENCOUNTER 2022-12-06 15:52 | Emergency (ER) | payer MEDICAID ==
[~2022-12-06] VITALS: Ht 167.6 cm; Wt 102.1 kg
[~2022-12-06 15:52] MED LIST changes: +ACET-9527 PO; +FAMO-90 PO; +ONDA-188 PO; +SIME125T38 PO; +SUCR1TAB6 PO
[2022-12-06 16:41] VITALS: BP 122/66
--- NOTE | 2022-12-06 16:47 | NUR ---
PATIENT AMBULATED TO BED 11 WITH STEADY/EVEN GAIT.
--- NOTE | 2022-12-06 16:47 | NUR ---
NICKY CALVERT EVALUATING PATIENT IN TRIAGE ROOM.
[2022-12-06] MEDS ORDERED: MORPHINE SULFATE 4 MG/ML SYR IVP ONE (16:50)
[2022-12-06] MEDS ORDERED: ONDANSETRON 4 MG/2 ML VIAL IVP ONE (16:50)
--- NOTE | 2022-12-06 17:00 | NUR ---
27/F WALKED IN REFERRED FROM CLINIC C/O RLQ PAIN AND RIGHT SIDED PELVIC PAIN X 1 WK. PT WAS ADVISED FROM CLINIC TO VISIT ED TO R/O APPENDICITIS. PT REPORTS PAIN WORSE WITH EXERTION. DENIES HEMATURIA OR DYSURIA. AFEBRILE AT TRIAGE. PMH/MEDS/SX: DENIES NKDA
--- NOTE | 2022-12-06 17:03 | NUR ---
US TECH AT BEDSIDE
--- NOTE | 2022-12-06 17:03 | NUR ---
PIERRE WALKED TO LAB, HANDED TO CPT HONEY
[2022-12-06 17:10] LABS: APPEARANCE,URINE CLEAR (CLEAR); BILIRUBIN,URINE NEGATIVE (NEGATIVE); BLOOD, URINE NEGATIVE (NEGATIVE); COLOR,URINE YELLOW (YELLOW); LEUKOCYTE ESTERASE ,URINE NEGATIVE (NEGATIVE); NITRITE, URINE NEGATIVE (NEGATIVE); UGLUCOSE NEGATIVE (NEGATIVE)
[2022-12-06 17:19] LABS: BASOPHILS % (AUTO) 0.2 % (0.0-2.0); EOSINOPHILS # (AUTO) 0.1 K/uL (0-0.4); HEMATOCRIT 37.9 % (36-48); HEMOGLOBIN 12.5 g/dL (12.0-16.0); LYMPHOCYTES # (AUTO) 2.9 K/uL (2.5-16.5); LYMPHOCYTES % (AUTO) 30.8 % (20.5-51.1); MEAN CORPUSCULAR HEMOGLOBIN 28 pg (27-31); MEAN CORPUSCULAR HGB CONC 33 g/dL (33-37); MEAN CORPUSCULAR VOLUME 83.6 fL (80-94); MONOCYTES # (AUTO) 0.6 K/uL (0.8-1.0); MONOCYTES % (AUTO) 6.7 % (1.7-9.3); NEUTROPHILS # (AUTO) 5.7 K/uL (1.8-7.7); NEUTROPHILS % (AUTO) 61.3 % (42.2-75.2); PLATELET COUNT (AUTO) 291 K/uL (140-450); RED BLOOD CELL COUNT(AUTO) 4.54 MIL/uL (4.20-5.40); RED CELL DISTRIBUTION WIDTH 14.5 % (11.6-13.7); WHITE BLOOD COUNT (AUTO) 9.4 K/uL (4.8-10.8)
--- NOTE | 2022-12-06 17:32 | NUR ---
PATIENT STATES MEDICATIONS EFFECTIVE. PAIN 5/10
[2022-12-06 17:44] LABS: ANION GAP 10.1 (8-16); CARBON DIOXIDE 27.5 mmol/L (21-32); CREATININE 0.8 mg/dL (0.6-1.3); POTASSIUM 3.6 mmol/L (3.5-5.1); TOTAL BILIRUBIN 0.8 mg/dL (0.0-1.0)
--- NOTE | 2022-12-06 19:15 | NUR ---
Report received from THIAGO Valle and continue care of patient.
[2022-12-06 19:52] VITALS: BP 137/67
== END 2022-12-06 19:51 | disposition home or self-care (01) ==
LOC: MED 15:52
DX: R10.31 Right lower quadrant pain (principal); R59.0 Localized enlarged lymph nodes; J35.8 Other chronic diseases of tonsils and adenoids
CPT/HCPCS: 36415; 74177; 76856; 80053; 81003; 81025; 83690; 85025; 96374; 96375; 99285; J2270; J2405; Q0092; Q9967

== ENCOUNTER 2022-12-24 23:20 | Emergency (ER) | payer MEDICAID ==
[~2022-12-24] VITALS: Ht 170.2 cm; Wt 102.1 kg
[2022-12-24 23:29] VITALS: BP 103/69
--- NOTE | 2022-12-25 00:53 | NUR ---
Dr. Puri examining patient.
[2022-12-25] MEDS ORDERED: FAMOTIDINE 20 MG TAB PO ONE (01:00)
[2022-12-25] MEDS ORDERED: diphenhydrAMINE 50 MG/ML VIAL IM ONE (01:00)
[2022-12-25] MEDS ORDERED: predniSONE 20 MG TAB PO ONE (01:00)
--- NOTE | 2022-12-25 01:16 | NUR ---
PT TAKEN TO BED 12
[2022-12-25] MEDS ORDERED: EPIN1KIT31 IM (01:17)
[2022-12-25] MEDS ORDERED: DIPH35CR TOP (01:17)
[2022-12-25] MEDS ORDERED: DIPH25TA53 PO (01:17)
[2022-12-25] MEDS ORDERED: PRED20TA5 PO (01:17)
[2022-12-25] MEDS ORDERED: LORA10TA19 PO (01:17)
[2022-12-25] MEDS ORDERED: LORATADINE 10 MG TAB PO ONE (02:10)
[2022-12-25] MEDS ORDERED: BETAMETHASONE DIPROP 0.05% 15 GM TUBE TP ONE (02:10)
[2022-12-25] MEDS ORDERED: HYDROXYZINE HYDROCHLORIDE 25 MG TAB PO ONE (02:35)
[2022-12-25 02:59] VITALS: BP 103/69
--- NOTE | 2022-12-25 02:59 | NUR ---
Patient discharged with v/s stable. Written and verbal after care instructions given and explained. Patient alert, oriented and verbalized understanding of instructions. Ambulatory with steady gait. All questions addressed prior to discharge. ID band removed. Patient advised to follow up with PMD. Rx of BENADRYL, ANTI-ITCH CREAM, EPIPEN,CLARITIN, DELTASONE given. Patient educated on indication of medication including possible reaction and side effects. Opportunity to ask questions provided and answered.
== END 2022-12-25 02:59 | disposition home or self-care (01) ==
LOC: MED 23:20
DX: L50.9 Urticaria, unspecified (principal); T78.1XXA Other adverse food reactions, not elsewhere classified, initial encounter; E11.9 Type 2 diabetes mellitus without complications; Z79.4 Long term (current) use of insulin; Z79.899 Other long term (current) drug therapy; Z98.890 Other specified postprocedural states; X58.XXXA Exposure to other specified factors, initial encounter
CPT/HCPCS: 96372; 99284; J1200; J7512

== ENCOUNTER 2024-01-30 10:06 | Emergency (ER) | payer MEDICAID ==
[~2024-01-30] VITALS: Ht 170.2 cm; Wt 104.3 kg
[~2024-01-30 10:06] MED LIST changes: +DIPH25TA53 PO; +DIPH35CR TOP; +EPIN1KIT31 IM; +LORA10TA19 PO; +PRED20TA5 PO; +SUCR-3 PO; -SUCR1TAB35 PO
[2024-01-30 10:27] VITALS: BP 111/79; PULSE 71; RESP 16; TEMP 98.1; O2SAT 98
[2024-01-30 12:01] VITALS: O2SAT 98
[2024-01-30] MEDS ORDERED: MUPI2CRE22 TP (12:08)
[2024-01-30 12:12] VITALS: BP 112/72; PULSE 66; RESP 16; TEMP 98.1; O2SAT 99
== END 2024-01-30 12:12 | disposition home or self-care (01) ==
LOC: MED 10:06
DX: L73.9 Follicular disorder, unspecified (principal); E11.9 Type 2 diabetes mellitus without complications; Z79.1 Long term (current) use of non-steroidal anti-inflammatories (NSAID); Z79.2 Long term (current) use of antibiotics; Z79.899 Other long term (current) drug therapy
CPT/HCPCS: 99283